=== PATIENT | female | born 2000 | race Caucasian/White ===

== ENCOUNTER 2021-09-04 09:48 | Inpatient (IN) | payer MEDICAID, OTHER ==
[~2021-09-04] VITALS: Ht 160 cm; Wt 57.7 kg
[2021-09-04 10:27] LABS: BASOPHILS % (AUTO) 0.6 % (0.0-2.0); EOSINOPHILS % (AUTO) 0.3 % (1.0-6.0); HEMATOCRIT 43.3 % (36-46); LYMPHOCYTES # (AUTO) 1.3 K/uL (1.0-4.8); LYMPHOCYTES % (AUTO) 11.9 % (22.0-44.0); MEAN CORPUSCULAR HEMOGLOBIN 29.8 pg (26.0-34.0); MEAN CORPUSCULAR HGB CONC 32.4 G/dL (31.0-37.0); MEAN CORPUSCULAR VOLUME 92 fL (80-100); MONOCYTES # (AUTO) 0.5 K/uL (0.1-1.0); MONOCYTES % (AUTO) 4.2 % (2.0-9.0); NEUTROPHILS # (AUTO) 9.2 K/uL (1.8-7.7); PLATELET COUNT (AUTO) 218 K/uL (150-450); RED BLOOD CELL COUNT(AUTO) 4.69 MIL/uL (4.00-5.20); RED CELL DISTRIBUTION WIDTH 12.8 % (11.5-14.5)
[2021-09-04 10:35] LABS: ANION GAP 12 mmol/L (8-16); CALCIUM, TOTAL 8.8 mg/dL (8.8-10.5); CARBON DIOXIDE 26 mmol/L (22-29); CHLORIDE 107 mmol/L (98-107); GLOMERULAR FILTR. RATE CALC > 60 mL/min (>60); GLUCOSE,RANDOM 100 mg/dL (70-110); POTASSIUM 3.8 mmol/L (3.5-5.1); SODIUM SERUM 145 mmol/L (136-145); UREA NITROGEN, BLOOD 5 mg/dL (7-18)
[2021-09-04 10:40] LABS: ALANINE AMINOTRANSFERASE 17 U/L (12-78); ALBUMIN 4.4 g/dL (3.4-5.0); ALKALINE PHOSPHATASE 62 U/L (46-116); ASPARTATE AMINOTRANSFERASE 13 U/L (15-37); BILIRUBIN,TOTAL 0.8 mg/dL (0.1-1.0); TOTAL PROTEIN, SERUM 7.2 g/dL (6.4-8.2)
[2021-09-04 10:58] LABS: COVID AG,FIA SOURCE NASOPHARYNGEAL
[2021-09-04 11:35] LABS: AMPHET/METH SCREEN,URINE NEGATIVE (NEGATIVE); BARBITURATE SCREEN, URINE NEGATIVE (NEGATIVE); BENZODIAZEPINES SCREEN,URINE NEGATIVE (NEGATIVE); CANNABINOID SCREEN,URINE POSITIVE (NEGATIVE); COCAINE SCREEN,URINE NEGATIVE (NEGATIVE); METHADONE SCREEN, URINE NEGATIVE (NEGATIVE); OPIATE SCREEN,URINE NEGATIVE (NEGATIVE); PHENCYCLIDINE SCREEN,URINE NEGATIVE (NEGATIVE)
[2021-09-04] MEDS ORDERED: ZOLPIDEM TARTRATE 10 MG TABLET PO PRN (12:30)
[2021-09-04] MEDS ORDERED: HALOPERIDOL 5 MG TABLET PO PRN (12:30)
[2021-09-04] MEDS: LORazepam 2 MG TABLET PO PRN (13:37)
[2021-09-04] MEDS: ONDANSETRON HCL 4 MG TABLET PO PRN (18:46)
[2021-09-05 08:46] VITALS: BP 137/74
[2021-09-05] MEDS: LORazepam 2 MG TABLET PO PRN ×3 (08:48→21:11)
[2021-09-05] MEDS: BACITRACIN 28 GM OINTMENT TP SCH ×2 (09:23→17:28)
[2021-09-05] MEDS: FLUoxetine HCL 20 MG CAPSULE PO SCH (09:58)
[2021-09-05 12:30] VITALS: BP 129/78
[2021-09-05] MEDS ORDERED: IBUPROFEN 400 MG TABLET PO PRN (12:45)
[2021-09-05] MEDS ORDERED: ALBUTEROL SULFATE HFA 90 MCG/PUFF 8 GM INHALER IH PRN (12:45)
[2021-09-05] MEDS ORDERED: ACETAMINOPHEN 325 MG TABLET PO PRN (12:45)
[2021-09-05] MEDS ORDERED: MAGNESIUM HYDROXIDE SUSPENSION 30 ML UDCUP PO PRN (12:45)
[2021-09-05] MEDS ORDERED: ONDANSETRON HCL 4 MG TABLET PO PRN (12:45)
[2021-09-05] MEDS ORDERED: PETROLATUM,WHITE 28 GM JELLY TP PRN (12:45)
[2021-09-05] MEDS ORDERED: NICOTINE 14 MG/24 HOUR PATCH TD PRN (12:45)
[2021-09-05] MEDS ORDERED: CloNIDine HCL 0.1 MG TABLET PO PRN (12:45)
[2021-09-05] MEDS ORDERED: MAG HYDROX/AL HYDROX/SIMETH ES 30 ML SUSPENSION UDCUP PO PRN (12:45)
[2021-09-05] MEDS ORDERED: GuaiFENesin/D-METHORPHAN [SUGAR-FREE] 200-20MG/10 ML SYRUP UDCUP PO PRN (12:45)
[2021-09-05] MEDS ORDERED: LOPERAMIDE HCL 2 MG CAPSULE PO PRN (12:45)
[2021-09-05] MEDS ORDERED: DOCUSATE SODIUM 100 MG CAPSULE PO PRN (12:45)
[2021-09-05 16:29] VITALS: BP 114/65
[2021-09-06 00:42] VITALS: BP 117/77
[2021-09-06 08:07] VITALS: BP 130/77
[2021-09-06 08:50] LABS: CHOL/HDL RATIO 2.8 (3.9-5.7); FREE T4 (FREE THYROXINE) 1.47 ng/dL (0.76-1.46); THYROID STIMULATING HORMONE 0.76 uIU/mL (0.36-3.74)
[2021-09-06 08:58] LABS: HEMOGLOBIN A1C 4.7 % (3.8-5.6)
[2021-09-06] MEDS: FLUoxetine HCL 20 MG CAPSULE PO SCH (09:39)
[2021-09-06] MEDS: BACITRACIN 28 GM OINTMENT TP SCH ×2 (09:48→16:18)
[2021-09-06] MEDS: LORazepam 2 MG TABLET PO PRN ×2 (09:51→16:21)
[2021-09-06] MEDS: ONDANSETRON HCL 4 MG TABLET PO PRN (11:29)
[2021-09-06 13:32] VITALS: BP 117/73
[2021-09-06] MEDS ORDERED: INFLUENZA VIRUS VACCINE QVS 2021-22 (6MO+)/PF 60 MCG/0.5 ML SYRINGE IM. ONE (14:15)
[2021-09-06 16:31] VITALS: BP 118/68
[2021-09-07 00:31] VITALS: BP 124/78
[2021-09-07] MEDS: ONDANSETRON HCL 4 MG TABLET PO PRN (06:51)
[2021-09-07 08:27] VITALS: BP 111/72
[2021-09-07] MEDS: FLUoxetine HCL 20 MG CAPSULE PO SCH (09:29)
[2021-09-07] MEDS: BACITRACIN 28 GM OINTMENT TP SCH ×2 (09:29→16:26)
[2021-09-07] MEDS: LORazepam 2 MG TABLET PO PRN (13:15)
[2021-09-07 16:06] VITALS: BP 107/60
[2021-09-08 06:17] VITALS: BP 106/64
[2021-09-08 08:16] VITALS: BP 136/97
[2021-09-08] MEDS: BACITRACIN 28 GM OINTMENT TP SCH (09:34)
[2021-09-08] MEDS: FLUoxetine HCL 20 MG CAPSULE PO SCH (09:34)
[2021-09-08] MEDS: LORazepam 2 MG TABLET PO PRN (11:36)
[2021-09-08] MEDS ORDERED: FLUO20CA36 PO (12:47)
== END 2021-09-08 15:50 | disposition home or self-care (01) | DRG 751 ==
LOC: EMS 09:54 → B2S 15:20
PROVIDERS: ADMIT Psychiatry & Neurology Child & Adolescent Psychiatry; ATTEND Psychiatry & Neurology Child & Adolescent Psychiatry
DX: F33.2 Major depressive disorder, recurrent severe without psychotic features (principal); F12.90 Cannabis use, unspecified, uncomplicated; Z20.822 Contact with and (suspected) exposure to COVID-19; K59.00 Constipation, unspecified; G44.209 Tension-type headache, unspecified, not intractable; S61.512A Laceration without foreign body of left wrist, initial encounter; X83.8XXA Intentional self-harm by other specified means, initial encounter; Y93.89 Activity, other specified; Y92.89 Other specified places as the place of occurrence of the external cause; Y99.8 Other external cause status; Z79.899 Other long term (current) drug therapy
CPT/HCPCS: 80053; 80061; 83036; 84439; 84443; 84703; 85025; 99285; G0480; Q0162